=== PATIENT | male | born 1970 | race Caucasian/White ===

== ENCOUNTER 2021-01-02 12:47 | Emergency (ER) | payer SELFPAY ==
[2021-01-02 13:12] VITALS: BP 98/69; PULSE 91; RESP 12; TEMP 36.4; O2SAT 94; BMI 28.8
--- NOTE | 2021-01-02 13:28 | CT_ITS ---
WS: [id number] CT CHEST, ABDOMEN AND PELVIS WITH CONTRAST HISTORY: fall TECHNIQUE: Contiguous 5 mm axial imaging performed through the chest, abdomen and pelvis with IV cont rast, oral contrast has not been provided. Coronal and sagittal reformats chest. Coronal and sagittal reformats through the abdomen and pelvis. All CT scans at [facility] use at least one of these dose optimization techniques: automated exposure control; mA and/or kV adjustment per patient size (includes targeted exams where dose is matched to clinical indication); or iterative reconstruct ion. CONTRAST: Omnipaque 300; 95 mL IV. DLP: 1437.69 mGy.cm COMPARISON: None available. Chest CT: Poor lung volumes due to poor inspiration. Dependent changes posteriorly. No pneumothorax o r pulmonary contusion. Normal-sized thoracic aorta with no injury. Normal size pulmonary artery. Hear t is normal. No pericardial or pleural effusion. No mediastinal hematoma. Nondisplaced left-sided rib fractures. Fifth rib is fractured laterally and posteriorly. Nondisplaced posterior 6 and seventh ri bs. Nondisplaced posterior fourth rib fracture. Abdomen CT: No hepatic or splenic lacerations. Splenic granulomata. Normal gallbladder. Normal pancre as and adrenal glands. No renal injuries or obstruction. No ascites or blood within the abdomen. The GI tract is negative. No free air. The appendix is normal. Pelvic CT: No free fluid. No adenopathy. Nondistended urinary bladder. No spine or pelvic fractures. L5 anterolisthesis by [address]/CT chest abd pel w con* IMPRESSION: 1. No hepatic, splenic or lung laceration. 2. No pneumothorax. 3. Nondisplaced left-sided rib fractures. 4. No spine fracture. 5. No peritoneal blood.
--- NOTE | 2021-01-02 13:28 | CT_ITS ---
WS: [id number] CT HEAD NONCONTRAST HISTORY: 10 feet fall, head injury ?LOC TECHNIQUE: Contiguous axial imaging performed through the brain in 2.5 mm imaging. Bone and soft tiss ue windows. Sagittal and coronal reformats reviewed. All CT scans at [facility] use at le ast one of these dose optimization techniques: automated exposure control; mA and/or kV adjustment pe r patient size (includes targeted exams where dose is matched to clinical indication); or iterative r econstruction. DLP: 912.8 mGy.cm COMPARISON: None available. No acute intracranial hemorrhage, midline shift or mass effect. No atrophy or prior infarcts or herniation. Ventricles: Normal size with no hydrocephalus. Paranasal sinuses: As visualized are clear. Mastoid air cells: Well pneumatized. Calvarium and scalp: Skull is intact with no soft tissue edema or swelling. CT/CT head wo con* [id number] IMPRESSION: Negative head CT.
--- NOTE | 2021-01-02 13:28 | CT_ITS ---
WS: [id number] CT CERVICAL SPINE HISTORY: fall TECHNIQUE: Contiguous 2.5 mm axial imaging performed through the entire cervical spine. Sagittal and coronal reformats also performed. All CT scans at [facility] use at least one of these do se optimization techniques: automated exposure control; mA and/or kV adjustment per patient size (inc ludes targeted exams where dose is matched to clinical indication); or iterative reconstruction. DLP: 917.76 mGy.cm COMPARISON: None available. Straightening of the normal cervical lordosis. Moderate disc space narrowing and osteophytosis throug hout the cervical spine. Craniocervical junction is normal. C1 and C2 lateral masses are aligned. Odo ntoid process is intact. No fractures. C2-C3: Small central disc protrusion. C3-C4: Osteophytic ridging encroaching upon the ventral thecal sac and foramen. Mild RIGHT and modera te LEFT foraminal stenosis. C4-C5: Normal. C5-C6: Osteophytes encroach upon the ventral thecal sac. No significant stenosis. C6-C7: Asymmetric osteophyte extends to the RIGHT causing mild effacement of the ventral CSF and encr oachment upon the cervical cord. Mild RIGHT foraminal narrowing. C7-T1: Normal. Soft tissues are normal. Lung apices are clear. CT/CT cervical spin wo con* [id number] IMPRESSION: 1. No acute cervical spine fracture. 2. Multilevel foraminal stenosis and osteophytosis as above.
--- NOTE | 2021-01-02 13:30 | ED_ITS ---
HPI - Trauma General: Chief Complaint: Trauma Stated Complaint: fell off of ladder / face wound Time Seen by Provider: 01/02/21 13:16 Source: patient and family () Mode of arrival: ambulatory Limitations: no limitations History of Present Illness: HPI narrative: Patient is a 51-year-old male who fell about 8 to 10 feet off a ladder. He is not sure what he landed on, but th inks it is probably gravel. He may have had a brief period of loss of consciousness but he is uncertain. He had been feeling unwell today prior to climbing up the ladder. He has injuries to the left side of his face and the left side of his chest and abdomen. He only complains of pain in his left lower chest wall with associated pain on inspiration. Mild shortness of breath. MD complaint: fall Onset (ago): hour(s) (2) Loss of Consciousness: unsure Location: head, face, chest and abdomen Severity: moderate Context: fall Associated symptoms: Reports chest pain and dizziness; Denies Unable to assess gait, abdominal pain, anorexia, back pain, chills, confusion, cough, dental pain, diaphoresis, difficulty breathing, epistaxis, fever(s), headache(s), nausea, seizures, short of breath, syncope, visual disturbances, vomiting or weakness Review of Systems General: Reports: 10 or more systems reviewed and unremarkable except in HPI and below Const: Denies: fever(s), chills or diaphoresis ENMT: Denies: dental pain or epistaxis Card: Reports: chest pain; Denies: syncope GI: Denies: abdominal pain, nausea or vomiting Musc: Denies: back pain Neuro: Reports: dizziness; Denies: headache(s) or confusion Physical Exam Const: COMMON NORMALS: no acute distress, average body habitus, patient oriented x3, no limitations, healthy appearing, alert and well nourished HENMT: COMMON NORMALS: normocephalic, external ears normal, EAC's normal, TM's normal bilaterally and moist oral mucous membranes HEAD & SCALP: normocephalic and abrasion (left cheek and lateral to left eye) EXTERNAL EAR: Yes external ears normal EXTERNAL AUDITORY CANAL: EAC's normal TYMPANIC MEMBRANE: TM's normal bilaterally Eye: COMMON NORMALS: Equal, round and reactive pupils present, EOMs intact bilaterally, conjunctivae normal and no scleral icterus CONJUNCTIVA: Yes conjunctivae normal PUPIL: Yes Equal, round and reactive pupils present Neck/C-Spine: COMMON NORMALS: full ROM, supple, no meningeal signs, no JVD and No carotid bruits Chest: COMMONS NORMALS: normal inspection of the chest CHEST: Yes tenderness (Left lower chest wall) Resp: COMMON NORMALS: normal respiratory effort, No retractions, No use of accessory muscles, clear to auscultation bilaterally and percussion normal AUSCULTATION: clear to auscultation bilaterally PERCUSSION: percussion normal Cardio: COMMON NORMALS: no JVD, regular rate, regular rhythm, S1 normal heart sound present, S2 normal heart sound present, No gallops present (Cardio), No clicks present (Cardio), No murmurs present (Cardio), No rub (Cardio) and Peripheral pulses 2+ throughout RATE: regular rate RHYTHM: regular rhythm HEART SOUNDS: S1 normal heart sound present and S2 normal heart sound present PERIPHERAL PULSES: Peripheral pulses 2+ throughout GI: COMMON NORMALS: Normal to inspection, nondistended, normoactive bowel sounds present, Soft to palpation, non-tender, No hepatosplenomegaly present, no masses and no bruits PALPATION: Yes Soft to palpation and Yes No hepatosplenomegaly present Extremity: COMMON NORMALS: normal to inspection, full ROM, capillary refill normal, no calf tenderness and no pedal edema Neuro: COMMON NORMALS: patient oriented x3 SENSORIUM/ORIENTATION: Yes alert MENINGEAL SIGNS: Yes no meningeal signs GAIT: No Unable to assess gait Skin: COMMON NORMALS: no rashes or lesions noted, no wounds, turgor normal, no jaundice, no petechiae and no mottling GENERAL SKIN EXAM: no rashes or lesions noted and turgor normal Course Reevaluation(s): Reevaluation #1: Discussed his lab and imaging findings with him. Negative for acute findings. No fractures or intracranial hemorrhage. We will discharge him home on conservative measures with no new orders. He voiced understanding and is in agreement with the plan. Time: 15:06 Vital Signs: Vital signs: Vital Signs Temperature 97.5 F L 01/02/21 13:12 Pulse Rate 90 01/02/21 15:37 Respiratory Rate 18 01/02/21 15:37 Blood Pressure 114/85 01/02/21 15:37 Pulse Oximetry 98 01/02/21 15:37 MDM - Trauma MDM Narrative: Medical decision making narrative: 50-year-old male who fell off a ladder and fell from a height of about 8 to 10 feet. He sustained some abrasions to his face and evaluation in the emergency department including head CT CT cervical spine and CT chest abdomen and pelvis were all negative for acute fracture, dislocation or hemorrhage. He is discharged home with no new orders. Medical Records: Attestation: I reviewed the patient's medical records. Lab Data: Attestation: I reviewed the patient's lab results. Labs: Lab Results 01/02/21 01/02/21 Range/Units 14:02 14:02 WBC 13.8 H (4.0-10.0) 10^3/ uL RBC 5.42 H (4.1-5.3) 10^6/u L Hgb 17.4 H (11.7-16.6) g/dL Hct 50.2 (42.0-52.0) % MCV 92.6 (80-94) fL MCH 32.1 (28.0-34.0) pg MCHC 34.7 (30.0-36.0) g/dL RDW 12.0 L (12.1-15.1) % Plt Count 262 (130-400) 10^3/c mm MPV 8.1 (7.4-10.4) fL Neut % (Auto) 88.5 % Lymph % (Auto) 6.2 % [place] % (Auto) 4.2 % Eos % (Auto) 0.2 % Baso % (Auto) 0.3 % Neut # (Auto) 12.24 H (1.8-7.7) 10^3/u L Lymph # (Auto) 0.9 (0.8-4.8) 10^3/u L [place] # (Auto) 0.6 (0.2-0.9) 10^3/u L Eos # (Auto) 0.0 (0.0-0.8) 10^3/u L Baso # (Auto) 0.0 (0.0-0.1) 10^3/u L Nucleated RBC % (a uto) 0 % Nucleated RBCs # 0.0 /100WBC Sodium 139 (136-145) mmol/L Potassium 4.0 (3.5-5.1) mmol/L Chloride 100 (98-107) mmol/L Carbon Dioxide 25 (22-29) mmol/L Anion Gap 18.0 (5-19) BUN 19 (6-20) mg/dL Creatinine 1.0 (0.7-1.2) mg/dL GFR Calculation 78.5 L (90-130) mL/min Glucose 125 H (65-115) mg/dL Calculated Osmolal ity 292 (285-295) mOsm/k g Calcium 9.4 (8.5-10.5) mg/dL Total Bilirubin 0.9 (0.15-1.2) mg/dL AST 33 (0-40) U/L ALT 44 H (0-41) U/L Alkaline Phosphata se 60 (40-130) IU/L Total Protein 7.3 (6.6-8.7) g/dL Albumin 4.7 (3.5-5.2) g/dL Globulin 2.6 (1.3-4.6) g/dL Imaging Data^: Other CT: Attestation: I personally reviewed and interpreted this imaging study as follows: Radiologist's impression: [address] [id number] Scan ReportSigned Patient: Orlando Watters #: [id number]: 1970Acct#:[id number]/Sex: 50 / MADM Date: 01/02/21Loc: ERRoom/Bed:Attending Dr: Ordering Provider/Ordering MD: Heaven Quiros MD, [facility] [place] Date of Service: 01/02/21 Procedure(s): CT cervical spin wo con* [id number] Accession Number(s): [id number] Report Number: [id number] WS: [id number] CT CERVICAL SPINE HISTORY: fall TECHNIQUE: Contiguous 2.5 mm axial imaging performed through the entire cervical spine. Sagittal and coronal reformats also performed. All CT scans at [facility] use at least one of these dose optimization techniques: automated exposure control; mA and/or kV adjustment per patient size (includes targeted exams where dose is matched to clinical indication); or iterative reconstruction. DLP: 917.76 mGy.cm COMPARISON: None available. Straightening of the normal cervical lordosis. Moderate disc space narrowing and osteophytosis throughout the cervical spine. Craniocervical junction is normal. C1 and C2 lateral masses are aligned. Odontoid process is intact. No fractures. C2-C3: Small central disc protrusion. C3-C4: Osteophytic ridging encroaching upon the ventral thecal sac and foramen. Mild RIGHT and moderate LEFT foraminal stenosis. C4-C5: Normal. C5-C6: Osteophytes encroach upon the ventral thecal sac. No significant stenosis. C6-C7: Asymmetric osteophyte extends to the RIGHT causing mild effacement of the ventral CSF and encroachment upon the cervical cord. Mild RIGHT foraminal n arrowing. C7-T1: Normal. Soft tissues are normal. Lung apices are clear. CT/CT cervical spin wo con* [id number] IMPRESSION: 1. No acute cervical spine fracture. 2. Multilevel foraminal stenosis and osteophytosis as above. Dictated By:Maggie Martini DOSigned By:Maggie Martini DOSigned Date/Time:01/02/21 1412DD/ [address] [address] Scan ReportSigned Patient: Orlando Watters #: [id number]: 1970Acct#:[id number]/Sex: 50 / MADM Date: 01/02/21Loc: ERRoom/Bed:Attending Dr: Ordering Provider/Ordering MD: Heaven Quiros MD, [facility] [place] Date of Service: 01/02/21 Procedure(s): CT chest abd pel w con* Accession Number(s): [id number] Report Number: [id number] WS: [id number] CT CHEST, ABDOMEN AND PELVIS WITH CONTRAST HISTORY: fall TECHNIQUE: Contiguous 5 mm axial imaging performed through the chest, abdomen and pelvis with IV contrast, oral contrast has not been provided. Coronal and sagittal reformats chest. Coronal and sagittal reformats through the abdomen and pelvis. All CT scans at [facility] use at least one of these dose optimization techniques: automated exposure control; mA and/or kV adjustment per patient size (includes targeted exams where dose is matched to clinical indication); or iterative reconstruction. CONTRAST: Omnipaque 300; 95 mL IV. DLP: 1437.69 mGy.cm COMPARISON: None available. Chest CT: Poor lung volumes due to poor inspiration. Dependent changes posteriorly. No pneumothorax or pulmonary contusion. Normal-sized thoracic aorta with no injury. Normal size pulmonary artery. Heart is normal. No pericardial or pleural effusion. No mediastinal hematoma. Nondisplaced left-sided rib fractures. Fifth rib is fractured laterally and posteriorly. Nondisplaced posterior 6 and seventh ribs. Nondisplaced posterior fourth rib fracture. Abdomen CT: No hepatic or splenic lacerations. Splenic granulomata. Normal gallbladder. Normal pancreas and adrenal glands. No renal injuries or obstruction. No ascites or blood within the abdomen. The GI tract is negative. No free air. The appendix is normal. Pelvic CT: No free fluid. No adenopathy. Nondistended urinary bladder. No spine or pelvic fractures. L5 anterolisthesis by [address]/CT chest abd pel w con* IMPRESSION: 1. No hepatic, splenic or lung laceration. 2. No pneumothorax. 3. Nondisplaced left-sided rib fractures. 4. No spine fracture. 5. No peritoneal blood. Dictated By:Maggie Martini DOSigned By:Maggie Martini DOSigned Date/Time:01/02/218DD/ 16 CT Head: Attestation: I personally reviewed and interpreted this imaging study as follows: Radiologist's impression: [address] [id number] Scan ReportSigned Patient: Orlando Watters #: [id number]: 1970Acct#:[id number]/Sex: 50 / MADM Date: 01/02/21Loc: ERRoom/Bed:Attending Dr: Ordering Provider/Ordering MD: Heaven Quiros MD, [facility] [place] Date of Service: 01/02/21 Procedure(s): CT head wo con* [id number] Accession Number(s): [id number] Report Number: [id number] WS: [id number] CT HEAD NONCONTRAST HISTORY: 10 feet fall, head injury ?LOC TECHNIQUE: Contiguous axial imaging performed through the brain in 2.5 mm imaging. Bone and soft tissue windows. Sagittal and coronal reformats reviewed. All CT scans at [facility] use at least one of these dose optimization techniques: automated exposure control; mA and/or kV adjustment per patient size (includes targeted exams where dose is matched to clinical indication); or iterative reconstruction. DLP: 912.8 mGy.cm COMPARISON: None available. No acute intracranial hemorrhage, midline shift or mass effect. No atrophy or prior infarcts or herniation. Ventricles: Normal size with no hydrocephalus. Paranasal sinuses: As visualized are clear. Mastoid air cells: Well pneumatized. Calvarium and scalp: Skull is intact with no soft tissue edema or swelling. CT/CT head wo con* [id number] IMPRESSION: Negative head CT. Dictated By:Maggie Martini DOSigned By:Maggie Martini DOSigned Date/Time:01/02/21 1408DD/ 05 Discharge Plan Discharge Patient Disposition: Home Clinical Impression: Fall from ladder Qualifiers: Encounter type: initial encounter Qualified Code(s): W11.XXXA - Fall on and from ladder, initial encounter Abrasion of face Qualifiers: Encounter type: initial encounter Qualified Code(s): S00.81XA - Abrasion of other part of head, initial encounter Contusion of rib on left side Qualifiers: Encounter type: initial encounter Qualified Code(s): S20.212A - Contusion of left front wall of thorax, initial encounter Condition: Stable Discharge Orders: Discharge ED (Routine); Ordered 01/02/21 Ordered By: Heaven Quiros Referrals: Leonid Frey DO [Primary Care Provider] - 1-3 days Discharge Diet: Usual diet Discharge Activity: Increase activity as tolerated Patient Instructions: Abrasion (ED), Fall Prevention (ED) Activity Restrictions/Additional Instructions: Return for any new or worsening symptoms. Follow-up with your primary care provider within 3 days. Take Tylenol or ibuprofen as needed for pain. You can also apply ice to the affected areas for 10 to 15 minutes at a time with a break of at least 20 minutes between each application. After 24 hours you may switch to a warm compress. Your pain is going to get worse over the next 2 to 3 days before gradually starts to get better. Coding Level of Care Code ED Research Physician for Chg Fwd Exam Comprehensive
--- NOTE | 2021-01-02 13:54 | PC.NURSE ---
Pt in CT
[2021-01-02] MEDS: iohexol 300 mg/mL 100 mL Btl IV (14:03)
[2021-01-02 14:16] LABS: Basophils % 0.3 %; Eosinophils % 0.2 %; Hematocrit 50.2 % (42.0-52.0); Hemoglobin 17.4 g/dL (11.7-16.6); Lymphocytes # 0.9 10^3/uL (0.8-4.8); Lymphocytes % 6.2 %; Mean Corpuscular HGB Conc 34.7 g/dL (30.0-36.0); Mean Corpuscular Hemoglobin 32.1 pg (28.0-34.0); Mean Corpuscular Volume 92.6 fL (80-94); Mean Platelet Volume 8.1 fL (7.4-10.4); Monocytes # 0.6 10^3/uL (0.2-0.9); Monocytes % 4.2 %; Neutrophils # 12.24 10^3/uL (1.8-7.7); Neutrophils % 88.5 %; Nucleated Red Blood Cells % 0 %; Platelet Count 262 10^3/cmm (130-400); Red Blood Count 5.42 10^6/uL (4.1-5.3); White Blood Count 13.8 10^3/uL (4.0-10.0)
[2021-01-02 14:31] VITALS: BP 129/80; PULSE 85; RESP 16; O2SAT 98
[2021-01-02 14:34] LABS: Alanine Aminotransferase 44 U/L (0-41); Albumin Level 4.7 g/dL (3.5-5.2); Alkaline Phosphatase 60 IU/L (40-130); Blood Urea Nitrogen 19 mg/dL (6-20); Calcium 9.4 mg/dL (8.5-10.5); Carbon Dioxide 25 mmol/L (22-29); Chloride 100 mmol/L (98-107); Globulin 2.6 g/dL (1.3-4.6); Glomerular Filtration Rate 78.5 mL/min (90-130); Glucose 125 mg/dL (65-115); Osmolality Calculated 292 mOsm/kg (285-295); Sodium 139 mmol/L (136-145); Total Bilirubin 0.9 mg/dL (0.15-1.2); Total Protein 7.3 g/dL (6.6-8.7)
[2021-01-02 14:37] LABS: Aspartate Amino Transferase 33 U/L (0-40)
[2021-01-02 15:37] VITALS: BP 114/85; PULSE 90; RESP 18; O2SAT 98
== END 2021-01-02 15:20 | disposition home or self-care (01) ==
PROVIDERS: Emergency Provider Family Medicine; PCP Family Medicine
DX: S00.81XA Abrasion of other part of head, initial encounter (principal); S20.212A Contusion of left front wall of thorax, initial encounter; W11.XXXA Fall on and from ladder, initial encounter
CPT/HCPCS: 70450; 71260; 72125; 74177; 80053; 85025; 99283; Q9967

== ENCOUNTER → 2023-07-19 13:51 | Outpatient (BNVA) | payer OTHER, SELFPAY | PROVIDERS: PCP Family Medicine; Visit Provider Family Medicine | DX: R05.3 Chronic cough (principal); I10 Essential (primary) hypertension; H57.9 Unspecified disorder of eye and adnexa | CPT/HCPCS: 71046; 85025 ==

== ENCOUNTER → 2024-01-31 08:40 | Outpatient (BNVA) | payer OTHER, SELFPAY | PROVIDERS: PCP Family Medicine; Visit Provider Family Medicine | DX: Z13.6 Encounter for screening for cardiovascular disorders (principal); E03.9 Hypothyroidism, unspecified; I10 Essential (primary) hypertension; R05.3 Chronic cough | CPT/HCPCS: 80053; 80061; 83036; 83090; 84443; 85025 ==

== ENCOUNTER → 2024-05-03 14:14 | Outpatient (BNVA) | payer OTHER, SELFPAY | PROVIDERS: PCP Family Medicine; Referring Provider Family Medicine; Visit Provider Internal Medicine Cardiovascular Disease | DX: I49.8 Other specified cardiac arrhythmias (principal); R07.9 Chest pain, unspecified | CPT/HCPCS: 93005 ==

== ENCOUNTER 2024-06-02 11:45 | Outpatient (CLI) | payer OTHER, SELFPAY ==
--- NOTE | 2024-06-02 12:00 | USCV_ITS ---
Orlando Watters Age: 53 Gender: M : 1970 Exam Date: 06/02/2024 12:22 Ordering Phys: Adryan Mejia MD ([email or web address]) Technologist: Simeon Luna Exam Location: [facility] [place] Indication: Abnormal ekg BP: 134 / 90 HR: 57 Rhythm: Sinus Technical Quality: Adequate MEASUREMENTS (Male / Female) Normal Values 2D ECHO LV Diastolic Diameter PLAX 4.8 cm 4.2 - 5.9 / 3.9 - 5.3 cm IVS Diastolic Thickness 1.2 cm 0.6 - 1.0 / 0.6 - 0.9 cm IVS Systolic Thickness 1.5 cm LVPW Diastolic Thickness 1.4 cm 0.6 - 1.0 / 0.6 - 0.9 cm LVPW Systolic Thickness 2.2 cm LVOT Diameter 2.1 cm LV Ejection Fraction 2D Teich 58.5 % LV Ejection Fraction MOD 4C 62.2 % LV Ejection Fraction MOD 2C 65.3 % LV Ejection Fraction 2C AL 65.2 % LA Diameter 3.6 cm RA Systolic Volume 4C AL 41.0 ml RA Systolic Volume 4C MOD 36.4 ml LA Sys Volume AL 40.1 cm cubed LA Sys Volume Index AL 18.4 cm cubed/m squared Aorta at Sinotubular Diameter 3.0 cm IVC Diameter 1.4 cm M-MODE LA Ao Ratio MM 1.2 AV Cusp Separation MM 2.2 cm DOPPLER AV Peak Velocity 130.0 cm/s LVOT Peak Velocity 76.0 cm/s AV Area Cont Eq vti 2.0 cm squared AV Area Cont Eq pk 2.0 cm squared MV Peak Velocity 83.0 cm/s MV Area PHT 3.9 cm squared Mitral E to A Ratio 0.8 TV Peak Velocity 346.0 cm/s TR Peak Velocity 371.0 cm/s TR Peak Gradient 55.1 mmHg TR Mean Velocity 279.0 cm/s TR Mean Gradient 34.2 mmHg TR Velocity Time Integral 98.8 cm PV Peak Velocity 77.0 cm/s RV Ejection Time 0.4 s FINDINGS Left Ventricle Normal LV size and ejection fraction of 55%, visual.. No regional wall motion abnormalities. Grade I/IV diastolic dysfunction (abnormal relaxation filling pattern), normal to mildly elevated filling pressures. Right Ventricle The right ventricle is normal in size and function. Right Atrium The right atrium is normal in size. Left Atrium The left atrium is normal in size. Mitral Valve No gross abnormalities noted Aortic Valve No gross abnormalities noted Tricuspid Valve Trace tricuspid valve regurgitation. Pulmonic Valve No gross abnormalities noted Pericardium Normal pericardium without effusion. Aorta Normal aortic annulus size. IVC Normal inferior vena cava. CONCLUSIONS Normal LV size and ejection fraction of 55%, visual.. No regional wall motion abnormalities. Grade I/IV diastolic dysfunction (abnormal relaxation filling pattern), normal to mildly elevated filling pressures. Trace of tricuspid valve regurgitation. There is no pericardial effusion. There are no intracardiac masses. No similar previous studies are available for comparison Dr Adryan Mejia MD FACC (Electronically Signed) Final Date: 04 June 2024 20:27 S
== END 2024-06-02 11:46 | disposition home or self-care (01) ==
LOC: RAD 11:49
PROVIDERS: PCP Family Medicine; Visit Provider Internal Medicine Cardiovascular Disease
DX: I50.30 Unspecified diastolic (congestive) heart failure (principal); R06.09 Other forms of dyspnea
CPT/HCPCS: 93306

== ENCOUNTER 2024-09-13 12:37 | Outpatient (CLI) | payer OTHER, SELFPAY | END 2024-09-13 12:38 | disposition home or self-care (01) | LOC: SLEEP 12:38 | PROVIDERS: PCP Family Medicine; Visit Provider Nurse Practitioner Family | DX: G47.33 Obstructive sleep apnea (adult) (pediatric) (principal) | CPT/HCPCS: G0399 ==

== ENCOUNTER 2025-06-28 07:28 | Outpatient (CLI) | payer OTHER, SELFPAY ==
[2025-06-28 08:03] VITALS: BMI 29.5
--- NOTE | 2025-06-28 08:07 | ECG_ITS ---
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 Interpretive Statements Lung unchanged pre/post procedure; Intraprocedure shortess of breath; Symptoms resoled by discharge PROCEDURE: The baseline electrocardiogram showed normal sinus rhythm with normal ST-Ts. Poor R wave progression. Possible old inferior wall IN. At the baseline, the patient's blood pressure was 172/150 mm Hg with a heart rate of 63/min. The patient exercised for 9 minutes on a standard Bryce protocol. Patient attained a maximum heart rate of 146 beats per minute(89% of the maximum predicted heart rate) with a blood pressure at the peak exercise of 199/115 mm Hg. The EKG at the peak exercise revealed no significant changes. Patient did not have any chest pain or any significant arrhythmis with the exercise Sestamibi was injected 1 minute prior to the peak exercise During the recovery phase, there were no new changes. Blood pressure at the end of the recovery phase was 161/106 mm Hg with a heart rate of 88 per minute. CONCLUSION: 1. No significant EKG changes with the with the [treadmill exercise 2. No exercise-induced chest pain or cardiac arrhythmia 3. Fair exercise tolerance, attained a maximum of 10.2 METs 4. Sestamibi/Sestamibi perfusion results pending; see separate report. Electronically Signed On 06-29-2025 17:46:14 [employer] by Adryan Mejia M.D. [email or web address]
[2025-06-28 09:13] VITALS: BP 161/106; PULSE 89
== END 2025-06-28 07:29 | disposition home or self-care (01) ==
LOC: CDL 07:30
PROVIDERS: PCP Family Medicine; Visit Provider Internal Medicine Cardiovascular Disease
DX: R94.31 Abnormal electrocardiogram [ECG] [EKG] (principal)
CPT/HCPCS: 36415; 78452; 93017; A9500